=== PATIENT | male | born 1985 | race Caucasian/White ===

== ENCOUNTER 2024-02-07 12:49 | Emergency (ER) | payer SELFPAY ==
[~2024-02-07] VITALS: Ht 182.8 cm; Wt 64.9 kg
[2024-02-07] MEDS ORDERED: Lidocaine Hydrochloride 2 ML AMP SC ONE (13:00)
[2024-02-07] MEDS ORDERED: Tdap Vaccine 0.5 ML SYR (Adult Vaccine) IM ONE (13:00)
== END 2024-02-07 14:03 | disposition home or self-care (01) ==
LOC: ED 12:49
DX: S61.211A Laceration without foreign body of left index finger without damage to nail, initial encounter (principal); W26.8XXA Contact with other sharp object(s), not elsewhere classified, initial encounter; Y93.89 Activity, other specified; Y92.89 Other specified places as the place of occurrence of the external cause; Y99.0 Civilian activity done for income or pay